=== PATIENT | female | born 1985 | race Caucasian/White ===

== ENCOUNTER → 2021-06-21 09:16 | Outpatient (CLI) | payer OTHER, SELFPAY ==
[2021-06-21 17:39] LABS: SARS-CoV-2 RNA PCR Negative
== END ==
PROVIDERS: Visit Provider Obstetrics & Gynecology
DX: Z01.812 Encounter for preprocedural laboratory examination (principal); Z20.822 Contact with and (suspected) exposure to COVID-19
CPT/HCPCS: C9803; U0003; U0005

== ENCOUNTER 2021-06-22 08:57 | Outpatient (CLI) | payer OTHER, SELFPAY ==
[2021-06-22 09:17] LABS: Basophils Percent Auto 0.3 % (0.2-1.2); Eosinophils Absolute Auto 0.8 K/mm3 (0-0.3); Eosinophils Percent Auto 5.2 % (0-4.4); Hematocrit 44.7 % (37.0-47.0); Hemoglobin 14.8 g/dL (12.0-15.0); Immature Granulocyte Absolute 0.06 K/mm3 (0.00-0.031); Immature Granulocyte Percent A 0.4 % (0-0.5); Lymphocytes Absolute Auto 2.99 K/mm3 (0.9-3.2); Lymphocytes Percent Auto 20.1 % (18.3-44.2); Mean Corpuscular HGB Conc 33.1 g/dl (32-36); Mean Corpuscular Hemoglobin 28.5 pg (26-34); Mean Corpuscular Volume 86.1 fl (80-100); Mean Platelet Volume 11.3 fl (7.4-10.4); Monocytes Absolute Auto 0.9 K/mm3 (0.1-0.6); Monocytes Percent Auto 6.3 % (2.6-8.5); Neutrophils Absolute Auto 10.1 K/mm3 (1.3-6.7); Neutrophils Percent Auto 67.7 % (45.5-73.1); Platelet Count Result 255 k/mm3 (150-375); Red Blood Count 5.19 M/mm3 (4.2-5.4); Red Cell Distribution Width 13.8 % (11.5-14.5); White Blood Count 14.9 K/mm3 (4.5-10.0)
== END 2021-06-22 08:58 | disposition home or self-care (01) ==
PROVIDERS: PCP Family Medicine; Visit Provider Obstetrics & Gynecology
DX: Z01.818 Encounter for other preprocedural examination (principal); N85.2 Hypertrophy of uterus
CPT/HCPCS: 36415; 85025; 86850; 86900; 86901

== ENCOUNTER 2021-06-24 00:26 | Day surgery (SDC) | payer OTHER, SELFPAY ==
[2021-06-20 16:21] VITALS: BMI 29.2
--- NOTE | 2021-06-22 07:44 | PM.IMHP ---
H&P: HPI History of Present Illness Date/Time: 06/22/21 07:44 This is a 35-year-old 4 para 4 admitted for robotic total vaginal hysterectomy and bilateral salpingectomy secondary to uterine prolapse enlarged uterus and pelvic pain. She also complains of dyspareunia this is been an ongoing she asked for definitive surgery she is status post tubal ligation. Risks and benefits reviewed including but not exclusive of , aspiration, bleeding, transfusion, perforation injury to bowel, bladder, ureters, or other internal need for laparotomy. She received the [employer] handout entitled hysterectomy as well as the [place] and out. She had all questions answered. Chief Complaint: Pelvic pain/dyspareunia/irregular bleeding Review of Systems Review of Systems: All systems reviewed & are unremarkable except as noted in HPI and below [facility] Social History Social History Smoking status: Never smoker Meds Home Medications and Allergies Home Medications Medication Instructions Recorded Confirmed Type amitriptyline 10 mg PO HS 06/20/21 06/20/21 History gabapentin 300 mg PO TID 06/20/21 06/20/21 History morphine 15 mg PO TID 06/20/21 06/20/21 History omeprazole 40 mg PO DAILY 06/20/21 06/20/21 History vilazodone [Viibryd] 40 mg PO DAILY 06/20/21 06/20/21 History Allergies Allergy/AdvReac Type Severity Reaction Status Date / Time cefaclor [From Ceclor] Allergy Nausea Verified 06/20/21 16:33 Penicillins Allergy Hives Verified 06/20/21 16:32 Exam Const: General: no acute distress Eyes: General: appearance normal, both eyes and all related structures Neck: Neck: supple and no JVD Thyroid: thyroid normal Resp: Effort & Inspection: normal respiratory effort Auscultation: clear to auscultation bilaterally Cardio: Rate: regular rate Rhythm: regular rhythm GI: Inspection: non-distended GI Palp: Yes Soft to palpation, No Tenderness to palpation present (GI) and No Guarding due to palpation present (GI) Auscultation: normal bowel sounds : General: Yes bladder normal to palpation External Female Exam: normal external appearance Speculum Exam - Vagina: normal appearance of the vagina Speculum Exam - Cervix: normal appearance of the cervix (Second-degree prolapse noted) Bimanual exam- vagina & uterus: enlarged Bimanual Exam- Adnexa, other: normal adnexae Skin: General skin exam: no rashes or lesions noted Extrem: General: normal to inspection and no edema Psych: Mental Status: mental status grossly normal Affect: normal affect Assessment and Plan Additional Plan Impression: Uterine prolapse with pelvic pain and bleeding refractory to medical therapy Plan: Robotic total vaginal hysterectomy and bilateral salpingectomy
[2021-06-24] VITALS (15 sets, daily range): BP systolic 94–139; BP diastolic 55–111; PULSE 72–100; RESP 10–20; TEMP 36.2–37.6; O2SAT 93–100
[2021-06-24] MEDS: ACETAMINOPHEN 500 MG TABLET 1000 MG PO (06:17)
[2021-06-24] MEDS: LACTATED RINGERS 1,000 ML 30 ML IV CONT ×2 (06:30→09:40)
--- NOTE | 2021-06-24 06:30 | WPDHPUPDATE1 ---
History and Physical Update Update Date/Time: 06/24/21 06:30 History and Physical has been reviewed, including an updated exam of the patient. There are NO changes in the patient's condition. Risks, benefits, and alternatives have been discussed and questions answered. Patient agrees to proceed with procedure.
[2021-06-24] MEDS: KETOROLAC 15 MG/ML VIAL (*BKC) IV PUSH (06:41)
--- NOTE | 2021-06-24 06:47 | WPDANESEPPF ---
Anes - Initial Pre Proc Eval Procedure: Operation Date: 06/24/21 07:30 Proposed Procedures p Robotic Assisted Total Vaginal Hysterectomy, Bilateral Salpingectomy - Jos Gallego MD Date/Time: 06/24/21 06:47 Surgeon: Jos Gallego MD Pre Op Diagnosis: enlarged uterus, uterine prolapse, pelvic pain, Patient Data Age: 35 Gender: F Height: 1.63 m Weight: 77.11 kg Allergies Allergy/AdvReac Type Severity Reaction Status Date / Time Penicillins Allergy Severe Hives Verified 06/24/21 06:14 cefaclor [From Ceclor] Allergy Mild Nausea Verified 06/24/21 06:14 Home Medications Medication Instructions Recorded Confirmed Type amitriptyline 10 mg PO HS 06/20/21 06/24/21 History gabapentin 300 mg PO TID 06/20/21 06/24/21 History morphine 15 mg PO TID 06/20/21 06/24/21 History omeprazole 40 mg PO DAILY 06/20/21 06/24/21 History vilazodone [Viibryd] 40 mg PO DAILY 06/20/21 06/24/21 History hydrocodone-acetaminophen 1 tablet PO Q4H PRN #30 tablet 06/24/21 Rx Patient hx anesthesia problems: none Family hx anesthesia problems: none PMFSH Past Medical History Medical History (Updated 06/24/21 @ 06:47 by Jos Nayak MD) Chronic back pain Surgical History Surgical History (Updated 06/24/21 @ 06:48 by Jos Nayak MD) S/P foot surgery Social History Social History Smoking status: Never smoker Living arrangements: with family Anes - Eval Final PreProcedure Day of Procedure 06/24/21 06:47 Patient weight: overweight Heart: regular rate and rhythm Lungs: clear to auscultation Airway: Mallampati scale class II Neurological: alert and oriented Last oral intake: >/= 8 hours ASA classification: III Emergent: no Anesthetic plan: proceed Anesthesia type and monitoring: general ETT and standard monitoring Informed Consent: The patient's anesthetic plan and its attendant risks and benefits were discussed with the patient/family/POA. Questions were solicited and answers provided to the satisfaction of the patient/family/POA.
[2021-06-24] MEDS: ceFAZolin 2 GM/D5W 50 ML 2 GM/50 ML BAG IVPB (07:22)
--- NOTE | 2021-06-24 08:39 | W.PM.PROC2 ---
Procedure Note - Detailed Date of Procedure 06/24/21 Pre-op Diagnosis enlarged uterus, uterine prolapse, pelvic pain, Post-op Diagnosis same Procedure Performed Robotic total vaginal hysterectomy and bilateral salpingectomies Surgeon Jos Gallego MD Anesthesia general Indications this is a 35-year-old patient with prolapse pelvic pain enlarged uterus Findings and enlarged uterus. Tubes status post tubal ligation. Benign-appearing ovaries Description of Procedure the patient was prepped draped in the normal sterile fashion and placed in the dorsal lithotomy position. Under excellent general endotracheal anesthesia weighted speculum placed in posterior fornix of vagina. Anterior lip of the uterus grasped with a single-tooth tenaculum and the uterus sounded to 11cm. Serial dilatation with fragmented dilators performed followed by passage of the 10. RANDOLPH and the 3. Cold. A 16 [place] catheter was placed in the bladder to drain clear urine. Weighted speculum was removed. The gloves were changed. A supraumbilical incision made in the [place] needle passed in the abdomen. The abdomen filled with CO2 gas [id number]. The 8mm trocar advanced in the abdomen. The downside visualized no injury seen. Gas reattached the patient placed in Trendelenburg. Left and right lower quadrant incisions were made in the 8mm trocars advanced under direct visualization assuring no injury. A right upper quadrant incision made and the 8mm trocar advanced under visualization assuring injury. The robot was docked. Attention was turned to the probation counselor. Left round ligament was grasped, burned, cut. Anteriorly a bladder flap was formed by sharply dissecting the peritoneum and retracting the bladder caudally away from the uterus cervix to the opposite round ligament. This was then clamped, burned, cut. Next the left fallopian tube portion was skeletonized and relieved of its attachment to the ovary this was repeated on the right side. The utero-ovarian ligament on the left was skeletonized to conserve the this was clamped, burned, cut and brought to the level of previously cut round ligament. In like fashion conserving the right ovary the utero-ovarian ligament was clamped, burned, cut this was brought to the level of the previously cut round ligament. The cardinal broad ligaments on the left were then serially skeletonized down the lateral edge of the uterus and cervix clamping burning cutting and till uterine vessels could be seen on the left these were individually clamped, burned, cut. There were noted to be large and tortuous. In like fashion the cardinal and broad ligaments on the right were serially skeletonized clamped, burned, cut and brought down the lateral edge of the uterus and cervix until the uterine vessels could be seen on the right. These were then individually clamped, burned, cut. At that point excellent blanching of the uterus was noted and blood loss was estimated at25cc. A colpotomy incision was made in the cervix uterus and tubes removed through the vagina. The vagina was closed with continuous running 0V lock from lateral edge to lateral edge back to the midline. Irrigation undertaken until clear. The raw surface areas were sprinkled with [place] term and hemostasis was assured. The robot was undocked. The gas removed from the abdomen. The trocars removed and the incisions closed with 4 Monocryl and glue. The patient was awakened and went to recovery in satisfactory condition. All sponge, needle, instrument counts were correct. There were no immediate complications noted Estimated Blood Loss 25 Drains No Packing No Pathology yes Complications No immediate complications Condition stable Disposition PACU
[2021-06-24] MEDS: fentaNYL CITRATE INJ (*CRX) 100 MCG/2 ML VIAL 25 MCG IV PUSH ×4 (09:21→09:33)
[2021-06-24] MEDS: HYDROmorphone HCL INJ (*CRX) 1 MG/ML SYR IV PUSH ×4 (09:41→10:24)
--- NOTE | 2021-06-24 10:09 | SUR.PHASEI ---
1005 sbar faxed floor notified
[2021-06-24] MEDS: DEXTROSE 5%/LACTATED RINGERS 1,000 ML 125 ML IV CONT ×2 (10:53→19:04)
--- NOTE | 2021-06-24 10:57 | PC.NURSE ---
1041-This patient, Janette Martin, was admitted to OB 2nd Floor Room 289-00. Patient/family oriented to hospital policies and general routines including ID bracelet, bed and alarms, visiting hours, pain management, procedures, bathroom and other care routines, personal items, smoking policy, room service/diet, and visiting hours. Information on how to activate the Rapid Response Team has been discussed. Patient/Family are encouraged to report perceived risks to care and to ask questions if they do not understand what they are told or what they should do.
[2021-06-24] MEDS: MORPHINE SULFATE (*CRX) 4 MG/ML INJ IV PUSH ×2 (12:32→18:05)
[2021-06-24] MEDS: HYDROcodone/acetaminophen (*CRX) 10-325 MG TABLET 1 TAB PO ×3 (15:15→23:49)
[2021-06-24] MEDS: DOCUSATE SODIUM 100 MG CAPSULE PO (15:16)
[2021-06-24] MEDS: IBUPROFEN 600 MG TABLET PO (19:05)
[2021-06-24] MEDS: SIMETHICONE 80 MG TAB.CHEW PO ×2 (19:06→23:49)
[2021-06-25] MEDS: DEXTROSE 5%/LACTATED RINGERS 1,000 ML 125 ML IV CONT (03:06)
[2021-06-25] MEDS: HYDROcodone/acetaminophen (*CRX) 10-325 MG TABLET 1 TAB PO ×3 (03:50→10:17)
[2021-06-25] MEDS: SIMETHICONE 80 MG TAB.CHEW PO ×2 (03:51→07:29)
[2021-06-25] MEDS: IBUPROFEN 600 MG TABLET PO ×2 (03:52→10:17)
[2021-06-25 04:00] VITALS: BP 124/65; PULSE 83; RESP 16; TEMP 36.9; O2SAT 98
[2021-06-25 05:44] LABS: Basophils Percent Auto 0.2 % (0.2-1.2); Eosinophils Percent Auto 0.2 % (0-4.4); Hemoglobin 12.6 g/dL (12.0-15.0); Immature Granulocyte Absolute 0.18 K/mm3 (0.00-0.031); Immature Granulocyte Percent A 0.7 % (0-0.5); Lymphocytes Absolute Auto 3.68 K/mm3 (0.9-3.2); Lymphocytes Percent Auto 14.3 % (18.3-44.2); Mean Corpuscular HGB Conc 32.3 g/dl (32-36); Mean Corpuscular Hemoglobin 28.3 pg (26-34); Mean Corpuscular Volume 87.4 fl (80-100); Mean Platelet Volume 11.9 fl (7.4-10.4); Monocytes Absolute Auto 1.3 K/mm3 (0.1-0.6); Monocytes Percent Auto 5.1 % (2.6-8.5); Neutrophils Absolute Auto 20.5 K/mm3 (1.3-6.7); Neutrophils Percent Auto 79.5 % (45.5-73.1); Platelet Count Result 240 k/mm3 (150-375); Red Blood Count 4.46 M/mm3 (4.2-5.4); Red Cell Distribution Width 13.8 % (11.5-14.5); White Blood Count 25.7 K/mm3 (4.5-10.0)
[2021-06-25 07:15] VITALS: BP 104/67; PULSE 79; RESP 14; TEMP 37.1; O2SAT 98
[2021-06-25] MEDS: DOCUSATE SODIUM 100 MG CAPSULE PO (07:29)
--- NOTE | 2021-06-25 07:51 | P.PNAN_ITS ---
Anes - Prog Note Post-Op Date/Time: 06/25/21 07:51 Cardiovascular status: normal Respiratory status: normal Airway patency: baseline Mental status: baseline Post-Op hydration status: normal Vital Signs: Last Vital Signs Temp 36.9 C 06/25/21 04:00 Pulse 83 06/25/21 04:00 Resp 16 06/25/21 04:00 BP 124/65 06/25/21 04:00 Pulse Ox 98 06/25/21 04:00 Pain Score (VAS): 0 I/O: Intake & Output 06/24/21 06/24/21 06/25/21 15:59 23:59 07:59 Intake Total 1900 2172 1280 Output Total 95 1450 900 Balance 1805 722 380 Laboratory Tests 06/25/21 05:00 06/25/21 05:00 WBC 25.7 H RBC 4.46 Hgb 12.6 Hct 39.0 MCV 87.4 MCH 28.3 MCHC 32.3 RDW 13.8 Plt Count 240 MPV 11.9 H Immature Gran % (Auto) 0.7 H Neut % (Auto) 79.5 H Lymph % (Auto) 14.3 L [place] % (Auto) 5.1 Eos % (Auto) 0.2 Baso % (Auto) 0.2 Lymph # (Auto) 3.68 H [place] # (Auto) 1.3 H Eos # (Auto) 0.0 Baso # (Auto) 0.0 Abs Immat Gran (auto) 0.18 H Absolute Neuts (auto) 20.5 H Absolute Nucleated RBC 0.0 Nucleated RBC % 0.0 Post-procedural complaints: none Patient Feedback: Patient satisfied with anesthetic care.
--- NOTE | 2021-06-25 08:06 | PM.OBDSVD ---
OB - DS: Summary OB Procedures : None OB Procedures Intrapartum: Spontaneous Vag Delivery OB Procedures: : None Peripartum Data Procedures: Procedures Operation Date: 06/24/21 07:30 Actual Procedure Side Surgeon p Robotic Assisted Total Vaginal Hysterectomy, Bilateral Salpingectomy Jos Gallego MD Status at Discharge Functional status at discharge: independent ambulation Overall status at discharge: patient is back to baseline Time Spent with Patient Time attestation: Total time spent providing and/or coordinating discharge services: Time spent: Less than 30 minutes Exam Const: General: comfortable and no acute distress Resp: Effort & Inspection: normal respiratory effort Auscultation: clear to auscultation bilaterally Cardio: Rate: regular rate GI: GI Palp: Yes Soft to palpation Auscultation: normal bowel sounds Other: Fundus firm below umbilicus Psych: Appearance: grossly normal Mental Status: mental status grossly normal Affect: normal affect DS: Data Data Completed and Pending Pending studies at discharge: Pending at discharge 06/24/21 08:07 Surgical [PTH] Routine Labs on day of discharge: Labs from last 24 hours 06/25/21 05:00 WBC 25.7 H RBC 4.46 Hgb 12.6 Hct 39.0 MCV 87.4 MCH 28.3 MCHC 32.3 RDW 13.8 Plt Count 240 MPV 11.9 H Immature Gran % (Auto) 0.7 H Neut % (Auto) 79.5 H Lymph % (Auto) 14.3 L [place] % (Auto) 5.1 Eos % (Auto) 0.2 Baso % (Auto) 0.2 Lymph # (Auto) 3.68 H [place] # (Auto) 1.3 H Eos # (Auto) 0.0 Baso # (Auto) 0.0 Abs Immat Gran (auto) 0.18 H Absolute Neuts (auto) 20.5 H Absolute Nucleated RBC 0.0 Nucleated RBC % 0.0 Discharge Plan Discharge Stand Alone Forms: General Discharge Instructions Follow-up/Referrals: Jos Gallego MD [Physician] - Discharge Medications: New hydrocodone-acetaminophen 5-325 mg tablet 1 tablet PO Q4H PRN (Reason: pain) Qty: 30 RF: 0 No Action amitriptyline 10 mg Tablet 10 mg PO HS RF: 0 omeprazole 40 mg Capsule,Delayed Release(Dr/Ec) 40 mg PO DAILY RF: 0 morphine 15 mg Tablet 15 mg PO TID RF: 0 Viibryd 40 mg Tablet 40 mg PO DAILY RF: 0 gabapentin 300 mg Capsule 300 mg PO TID RF: 0 Attending physician on admission: Jos Gallego
--- NOTE | 2021-06-25 08:07 | P.DS_ITS ---
DS: Admitting Diagnosis Admitting Diagnosis pelvic organ prolapse enlarged uterus pelvic pain DS: Summary Hospital Course Hospital Course: Janette Martin was admitted after robotic assisted total laparoscopic hysterectomy and bilateral salpingectomy for pelvic organ prolapse, pelvic pain and enlarged uterus. The above procedure was performed with no complications. She is doing well post op. She states her pain is well controlled with PO medications. She reports minimal bleeding. She is ambulating up to the chair. Her mendoza catheter was removed. She is tolerating PO without N/V. She reports passing flatus. Status at Discharge Overall status at discharge: patient is progressing back to baseline Time Spent with Patient Time attestation: Total time spent providing and/or coordinating discharge services: Time spent: Less than 30 minutes Exam Const: General: comfortable and no acute distress Limitations: no limitations Resp: Effort & Inspection: normal respiratory effort Auscultation: clear to auscultation bilaterally Cardio: Rate: regular rate Rhythm: regular rhythm GI: Inspection: non-distended GI Palp: Yes Soft to palpation, Yes Tenderness to palpation present (GI) (milder tenderness to deep palpation) and No Guarding due to palpation present (GI) Auscultation: normal bowel sounds Other: incisions C/D/I covered with dermabond Urinary Catheter: Urinary Catheter: urine clear Skin: General skin exam: normal color Extrem: General: normal to inspection Psych: Mental Status: mental status grossly normal Affect: normal affect DS: Data Data Completed and Pending Pending studies at discharge: Pending at discharge 06/24/21 08:07 Surgical [PTH] Routine Labs on day of discharge: Labs from last 24 hours 06/25/21 05:00 WBC 25.7 H RBC 4.46 Hgb 12.6 Hct 39.0 MCV 87.4 MCH 28.3 MCHC 32.3 RDW 13.8 Plt Count 240 MPV 11.9 H Immature Gran % (Auto) 0.7 H Neut % (Auto) 79.5 H Lymph % (Auto) 14.3 L [place] % (Auto) 5.1 Eos % (Auto) 0.2 Baso % (Auto) 0.2 Lymph # (Auto) 3.68 H [place] # (Auto) 1.3 H Eos # (Auto) 0.0 Baso # (Auto) 0.0 Abs Immat Gran (auto) 0.18 H Absolute Neuts (auto) 20.5 H Absolute Nucleated RBC 0.0 Nucleated RBC % 0.0 Discharge Plan Discharge Patient Disposition: Home, Self-Care Patient Instructions: Laparoscopic Hysterectomy (DC) Stand Alone Forms: General Discharge Instructions Follow-up/Referrals: Jos Gallego MD [Physician] - Discharge Medications: New hydrocodone-acetaminophen 5-325 mg tablet 1 tablet PO Q4H PRN (Reason: pain) Qty: 30 RF: 0 No Action amitriptyline 10 mg Tablet 10 mg PO HS RF: 0 omeprazole 40 mg Capsule,Delayed Release(Dr/Ec) 40 mg PO DAILY RF: 0 morphine 15 mg Tablet 15 mg PO TID RF: 0 Viibryd 40 mg Tablet 40 mg PO DAILY RF: 0 gabapentin 300 mg Capsule 300 mg PO TID RF: 0
[2021-06-25] MEDS: ENOXAPARIN 40 MG/0.4 ML SYRINGE SUB-Q (09:59)
[2021-06-25 10:00] VITALS: PULSE 79; RESP 14; O2SAT 98
== END 2021-06-25 11:55 | disposition home or self-care (01) ==
LOC: ANHSURGERY 05:49 → ANHOB2 10:42
PROVIDERS: PCP Family Medicine; Visit Provider Obstetrics & Gynecology
PROC: (CPT 58552; principal; 2021-06-24 07:30)
DX: N81.4 Uterovaginal prolapse, unspecified (principal); R10.2 Pelvic and perineal pain; N80.0 Endometriosis of uterus
CPT/HCPCS: 58552; S2900; 36415; 85025; 86850; 86900; 86901; 88307; 99199; A9270; C9803; J0690; J1100; J1170; J1200; J1650; J1885; J2250; J2270; J2405; J2704; J2710; J3010; J7030; J7120; J7121; U0003; U0005